=== PATIENT | female | born 1965 | race American Indian/Alaskan Native ===

== ENCOUNTER 2018-08-22 13:36 | Emergency (ER) | payer BC, OTHER ==
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
[2018-08-22 14:08] VITALS: BP 132/71
--- NOTE | 2018-08-22 15:10 | XRay Report ---
LUMBOSACRAL SPINE, 3 VIEWS: History: Back pain Findings: The vertebral bodies, disk spaces and posterior elements are intact. No compression deformity or malalignment. Mild disc space narrowing is identified at L2-3 and L4-5. Moderate disc space narrowing at L3-4. The SI joints are symmetric and unremarkable. Impression: Lumbar spondylosis. No evidence for acute injury to the lumbar spine.
--- NOTE | 2018-08-22 15:13 | XRay Report ---
CERVICAL SPINE, 3 views: History: Neck pain. Findings: The vertebral bodies, disk spaces, posterior elements and prevertebral soft tissues are unremarkable. The dens is intact. No acute fracture or malalignment is identified. Small left C7 cervical rib and large right C7 cervical rib are noted. Impression: No evidence for acute injury to the cervical spine. Bilateral cervical ribs at C7.
[2018-08-22] MEDS ORDERED: TORADOL IM ONE (16:50)
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
== END 2018-08-22 17:14 | disposition home or self-care (01) ==
LOC: ED 13:36
DX: M54.5 Low back pain (principal); M54.2 Cervicalgia; M79.10 Myalgia, unspecified site; Z98.51 Tubal ligation status; V89.2XXA Person injured in unspecified motor-vehicle accident, traffic, initial encounter; Y93.89 Activity, other specified; Y92.488 Other paved roadways as the place of occurrence of the external cause; Y99.8 Other external cause status
CPT/HCPCS: 72040; 72100; 96372; 99283; J1885